=== PATIENT | male | born 1990 | race Caucasian/White ===

== ENCOUNTER 2019-05-18 13:19 | Emergency (ER) | payer SELFPAY ==
[2019-05-18 13:29] VITALS: BP 136/90; PULSE 95; RESP 18; TEMP 36.7; O2SAT 100
--- NOTE | 2019-05-18 13:32 | ED_ITS ---
I attest that this documentation has been prepared under the direction and in the presence of Audie Perales MD. [place],JaunCari boogiebin 05/18/19;13:37 HPI - URI/Sore Throat General Chief Complaint: Upper Respiratory Infection Stated Complaint: fever/fatigue/aches Time Seen by Provider: 05/18/19 13:32 Source: patient and RN notes reviewed Mode of arrival: ambulatory Limitations: no limitations History of Present Illness HPI Narrative: A 29 y/o male, who is a smoker and nondrinker, presents to the ED with a subjective fevers and chills for the past 5 days. He reports associated body aches and congestion. He notes that he has not been sleeping well. He denies any cough, EA, N/V/D/ dehydration, nor sore throat. MD elicited complaint: fever (subective) Onset (ago): day(s) (5) Associated symptoms: chills and other (congestion and body aches) Treatments prior to arrival: none Related Data Allergies Allergy/AdvReac Type Severity Reaction Status Date / Time No Known Allergies Allergy Verified 05/18/19 13:32 Review of Systems Review of Systems: Narrative: General/Constitutional: Reports a subjective f ever, chills, and body aches. Ears/Nose/Throat: No: sore throat. Reports congestion Respiratory: Denies: cough. All Other Systems: Reviewed and Negative [facility] Past Medical History Medical History (Updated 05/18/19 @ 13:52 by Audie Perales MD) Healthy adult male Surgical History Surgical History (Updated 05/18/19 @ 13:41 by Jaun Scott) History of knee surgery History of tonsillectomy Social History Social History (Updated 05/18/19 @ 13:41 by Jaun Scott) Smoking status: Smoker, status unknown Gender identity (if verbalized by the patient): Male Exam Narrative: Exam Narrative: General Appearance: Well appearing, Conjunctiva clear Ears: Auditory canal normal, TM normal Nose: Rhinorrhea, Mucousal erythema Mouth/Throat: MM moist, Uvula midline, Pharyngeal erythema Supple, Respiratory: No respiratory distress, Breath sounds equal, Clear to auscultation Musculoskeletal: warm, Dry Neurological: A&O x3, Normal affect Course Vital Signs Vital signs: Vital Signs Temperature 98.0 F 05/18/19 13:29 Pulse Rate 95 05/18/19 13:29 Respiratory Rate 18 05/18/19 13:29 Blood Pressure 136/90 05/18/19 13:29 Pulse Oximetry 100 05/18/19 13:29 Temperature 98.0 F 05/18/19 13:29 Pulse Rate 95 05/18/19 13:29 Respiratory Rate 18 05/18/19 13:29 Blood Pressure 136/90 05/18/19 13:29 Pulse Oximetry 100 05/18/19 13:29 Discharge Plan Discharge Clinical Impression: Influenza-like illness Patient Disposition: Home, Self-Care Condition: Stable Prescriptions: New azithromycin 250 mg tablet See Rx Instructions .ROUTE .COMPLEX Qty: 6 RF: 0 benzonatate [Tessalon Perles] 100 mg capsule 100 mg PO TID Qty: 20 RF: 1 codeine-guaifenesin 10-100 mg/5 mL liquid 7.5 ml PO Q6H PRN (Reason: cough) Qty: 118 RF: 0 Follow-up/Referrals: UNKNOWN,DOCTOR [Primary Care Provider] - Stand Alone Forms: Work/School Release IP Discharge Date/Time: 05/18/19 13:55 I personally performed the services described in this documentation. All medical record entries made by the
== END 2019-05-18 13:55 | disposition home or self-care (01) ==
PROVIDERS: Emergency Provider Emergency Medicine
DX: R50.9 Fever, unspecified (principal); R52 Pain, unspecified; R53.83 Other fatigue
CPT/HCPCS: 99203; G0463